=== PATIENT | male | born 1970 | race African-American/Black ===

== ENCOUNTER 2016-02-28 11:37 | Day surgery (SDC) | payer MEDICARE, OTHER ==
--- NOTE | 2016-02-07 16:59 | CONS ---
DATE OF ADMISSION: 12/05/2015 DATE OF CONSULTATION: TYPE OF CONSULTATION: Preoperative Gastroenterology Dear Dr. Clements, I thank you very much for this kind referral. HISTORY OF PRESENT ILLNESS: Mr. Bin Diaz is a 45-year-old male patient who has been referred to me for further evaluation of upper abdominal pain and chronic heartburn not completely responding to therapy with pantoprazole. There is no past history of peptic ulcer disease. He is not taking any nonsteroidal anti-inflammatory agents. His appetite has been good and there is no history of significant weight loss. There is no history of gallstones. He does not have any fever, chills or jaundice. There is no history of liver disease. The patient denies any change in the bowel habit or rectal bleeding. There is no past history of inflammatory bowel disease or colon neoplasm. He is hypertensive. He is not a diabetic. He does not have any heart disease or lung problem. There is no history of kidney disease. The patient has got arthritis with back problem and he is status post back surgery. He has been taking tramadol. SOCIAL HISTORY: He is a smoker. He also smokes marijuana. He denies alcohol abuse. FAMILY HISTORY: Negative for gastrointestinal tract neoplasm. ALLERGIES: THERE IS NO HISTORY OF SIGNIFICANT DRUG ALLERGY. MEDICATIONS: 1. Pantoprazole. 2. Lisinopril. 3. Hydrochlorothiazide. 4. Tramadol. PHYSICAL EXAMINATION: GENERAL: He is 5 feet 7 inches tall and he weighs 315 pounds. HEART: Examination of the heart reveals normal first and second heart sounds. LUNGS: Clear. ABDOMEN: Soft without any distention. Liver and spleen are not palpable. There are no masses. There is no focal tenderness. Normal bowel sounds are heard. CENTRAL NERVOUS SYSTEM: Does not reveal any focal neurological deficit. IMPRESSION: 1. Upper abdominal pain, not responding to therapy. 2. Chronic heartburn, not responding to therapy with pantoprazole. 3. Hypertension. 4. History of arthritis. 5. Status post back surgery. 6. Obesity. 7. The patient is a smoker. 8. The patient also smokes marijuana. PLAN: 1. The patient was strongly advised to stop smoking. 2. The patient was strongly advised to lose weight. 3. Dietary consultation was recommended. 4. Follow up with the primary MD for the management of obesity. 5. Continue pantoprazole. 6. Endoscopic examination for further evaluation. 7. Because of the marked obesity with a short thick neck, he needs monitored anesthesia care for the procedure. The procedure and possible complications are well explained to the patient. He understands and consents to the procedure. I thank you once again. With warmest personal regards, Dictated By: TOD LOPEZ/JASON Conf#: [id number] DID#: [id number] MTDD
[~2016-02-28] VITALS: Ht 170.2 cm; Wt 142.0 kg
[~2016-02-28 11:37] MED LIST: ONDA4TAB14 PO; PANT20TA2 PO
[2016-02-28 12:19] VITALS: Ht 170.2 cm; Wt 142.0 kg
[2016-02-28] MEDS ORDERED: LISI40TA9 PO (12:23)
[2016-02-28] MEDS ORDERED: TRAM100T27 PO (12:24)
[2016-02-28] MEDS ORDERED: HYDR12.58 PO (12:24)
[2016-02-28 12:34] VITALS: BP 148/91; PULSE 75; RESP 24
[2016-02-28] MEDS ORDERED: PROPOFOL 40 ML ONE ×2 (12:59→13:10)
[2016-02-28] MEDS ORDERED: LIDOCAINE 100 MG SYRINGE ONE (13:00)
[2016-02-28] MEDS ORDERED: FENTAnyl 50 MCG/ML VIAL ONE ×2 (13:00→13:11)
[2016-02-28 13:52] VITALS: BP 125/88; PULSE 74; RESP 16
[2016-02-28 13:57] VITALS: BP 133/87; PULSE 65; RESP 17
--- NOTE | 2016-02-28 22:37 | GILP ---
DATE OF PROCEDURE: NAME OF PROCEDURE: Esophagogastroduodenoscopy and biopsy. SURGEON: Tod Figueredo MD PREOPERATIVE DIAGNOSES: 1. Abdominal pain. 2. Chronic heartburn. POSTOPERATIVE DIAGNOSES: 1. Hiatal hernia. 2. Gastroesophageal reflux disease. 3. Gastritis. 4. Gastric mucosal biopsies were taken for Helicobacter pylori test. INDICATION FOR THE PROCEDURE: Mr. Mark Diaz is a 45-year-old male patient who had upper abdomin al pain and chronic heartburn, not responding to therapy. The patient was scheduled for endoscopic examination for further evaluation. The procedure and possible complications are well explained to the patient. He understood and conse nted to the procedure. DESCRIPTION OF PROCEDURE: Under the influence of anesthesia, the gastroscope was carefully introduc ed into the esophagus and, under direct vision, it was advanced to the stomach and through the pylor us into the duodenal bulb and descending duodenum. FINDINGS: ESOPHAGUS: The patient had small hiatal hernia and gastroesophageal reflux disease. STOMACH: He had gastritis. Gastric mucosal biopsies were taken for H. pylori test. DUODENUM: Normal. He tolerated the procedure very well and there was no complication from the procedure. At the end o f the procedure, he was awake with stable vital signs and he was discharged home to the care of his family. IMPRESSION: 1. Small hiatal hernia. 2. Gastroesophageal reflux disease. 3. Gastritis. 4. Gastric mucosal biopsies were taken for Helicobacter pylori test. PLAN: 1. Pantoprazole 40 mg p.o. q.a.m. 2. Zantac 300 mg p.o. at bedtime. 3. Await H. pylori test report. Dictated By: TOD LOPEZ/JASON Conf#: [id number] DID#: [id number] CC: TOD FIGUEREDO MD;*EndCC*
== END 2016-02-28 13:48 | disposition home or self-care (01) ==
LOC: GIL 11:37
PROVIDERS: ATTEND Internal Medicine Gastroenterology
DX: K44.9 Diaphragmatic hernia without obstruction or gangrene (principal); K21.9 Gastro-esophageal reflux disease without esophagitis; K29.70 Gastritis, unspecified, without bleeding; F41.8 Other specified anxiety disorders; I10 Essential (primary) hypertension; E66.01 Morbid (severe) obesity due to excess calories; Z68.42 Body mass index [BMI] 45.0-49.9, adult
CPT/HCPCS: 43239; 87081; J2001; J3010

== ENCOUNTER 2016-03-08 15:23 | Emergency (ER) | payer MEDICARE, OTHER ==
[~2016-03-08] VITALS: Ht 152.4 cm; Wt 140.0 kg
[~2016-03-08 15:23] MED LIST changes: +HYDR12.58 PO; +LISI40TA9 PO; -ONDA4TAB14 PO; +TRAM100T27 PO
[2016-03-08 15:29] VITALS: Ht 152.4 cm; Wt 140.0 kg
[2016-03-08] MEDS ORDERED: ONDANSETRON 4 MG INJ IV STA (15:44)
[2016-03-08] MEDS ORDERED: morphine 4 MG/ML VIAL IV STA (15:44)
[2016-03-08] MEDS ORDERED: SOD CHLORIDE 0.9% 1,000 ML IV STA (15:44)
[2016-03-08 16:12] LABS: BASOPHILS % 0.3 % (0.0-2.0); EOSINOPHILS # 0.1 10^3/ul (0.0-0.5); EOSINOPHILS % 0.6 % (0.0-7.0); HEMOGLOBIN 15.4 g/dl (14.0-18.0); LYMPHOCYTES # 2.5 10^3/ul (0.8-2.9); LYMPHOCYTES % 26.8 % (15.0-51.0); MEAN CORPUSCULAR HEMOGLOBIN 27.4 pg (29.0-33.0); MEAN CORPUSCULAR HGB CONC 34.1 g/dl (32.0-37.0); MEAN CORPUSCULAR VOLUME 80.4 fl (82.0-101.0); MEAN PLATELET VOLUME 8.3 fl (7.4-10.4); MONOCYTE # 0.7 10^3/ul (0.3-0.9); MONOCYTES % 7.8 % (0.0-11.0); NEUTROPHIL # 5.9 10^3/ul (1.6-7.5); NEUTROPHILS % 64.5 % (39.0-77.0); PLATELET COUNT 402 10^3/UL (140-440); RED CELL DISTRIBUTION WIDTH 14.5 % (11.5-14.5); UNCORRECTED WBC 9.2 10^3/ul (4.8-10.8); WHITE BLOOD COUNT 9.2 10^3/ul (4.8-10.8)
[2016-03-08 16:13] LABS: ALBUMIN 4.1 g/dl (3.3-4.9); CONDITION 1; LH ANALYZER COMMENTS 1
[2016-03-08 16:14] LABS: POTASSIUM 4.4 mmol/L (3.5-5.1)
[2016-03-08 16:16] LABS: ALBUMIN/GLOBULIN RATIO 0.89; BILIRUBIN,INDIRECT 0.3 mg/dl (0-1.1); BILIRUBIN,TOTAL 0.3 mg/dl (0.2-1.3); CREATININE 1.3 mg/dl (0.61-1.24); TOTAL PROTEIN 8.7 g/dl (6.1-8.1)
[2016-03-08 16:17] LABS: CALCIUM 9.4 mg/dl (8.4-10.2)
--- NOTE | 2016-03-08 16:30 | RADRPT ---
PROCEDURE: CT Abdomen and Pelvis without contrast. CLINICAL INDICATION: Abdominal pain with nausea and vomiting. TECHNIQUE: CT scan of the abdomen and pelvis without contrast was performed on a multidetector hig h-resolution CT scanner. The patient was scanned without intravenous contrast. Coronal and sagittal reformatted images were obtained from the axial source images. Images were reviewed on a high-resol [employer] PACS workstation. The total exam CTDI equals 23.85 mGy and the total exam DLP equals 1746.67 m Gy-cm. One or more of the following dose reduction techniques were used: Automated exposure control. Adjustment of the mA and/or kV according to patient size. Use of iterative reconstruction technique. COMPARISON: None FINDINGS: CT abdomen: The lung bases are clear. The heart size is normal, without pericardial thickening or effusion. Th e liver is normal in size and density without focal mass or intrahepatic biliary dilatation. The sp clementina is normal in size and homogeneous in density. The stomach is partially collapsed, but is gross ly unremarkable. The pancreas as visualized is normal. The gallbladder and biliary tree are unrema rkable and there is no evidence for biliary dilatation. The adrenal glands are symmetric and normal . The kidneys are symmetrically unremarkable as well. No renal calculus or obstructive uropathy or mass lesion is seen. The aorta is of normal caliber. There is no retroperitoneal lymphadenopathy. The stevo hepatis cely on is clear. The bowel and mesentery, as visualized, are equally unremarkable. CT pelvis: The small bowel loops situated within the pelvis are unremarkable. There is a normal appendix. The pelvic organs are normal. The pelvic sidewalls and inguinal regions are clear. The sigmoid colon a nd rectum are remarkable for mild sigmoid diverticulosis without evidence of acute diverticulitis. No mass, lymphadenopathy, or free fluid is seen. No acute inflammation is seen. No osteolytic or os teoblastic lesion is detected. IMPRESSION: 1. No mass, lymphadenopathy, or focal acute inflammatory process is identified. 2. Mild sigmoid diverticulosis without evidence of acute diverticulitis. 3. Normal appendix. RPTAT: BB .Arnie Guidry MD, Date Time Electronically viewed and signed by .Arnie Guidry MD, on 03/08/2016 16:29 .O/
[2016-03-08] MEDS ORDERED: HYDROmorphONE 1 MG/ML SYG IV STA (16:41)
[2016-03-08] MEDS ORDERED: RANI150T9 PO ×2 (16:47→18:41)
[2016-03-08] MEDS ORDERED: FAMOTIDINE 20 MG INJ IV ONE (17:00)
[2016-03-08] MEDS ORDERED: LIDOCAINE/MYLANTA 40 ML BTL PO ONE (17:00)
[2016-03-08] MEDS ORDERED: METOCLOPRAMIDE 10 MG INJ IV ONE (17:00)
[2016-03-08 18:36] LABS: ADD UMIC YES; URINE BILIRUBIN (Dip) NEGATIVE (NEGATIVE); URINE BLOOD (Dip) 1+ (NEGATIVE); URINE GLUCOSE (Dip) NEGATIVE (NEGATIVE); URINE KETONES (Dip) TRACE (NEGATIVE); URINE LEUKOCYTE ESTERASE (Dip) NEGATIVE (NEGATIVE); URINE NITRITE (Dip) NEGATIVE (NEGATIVE); URINE TOTAL PROTEIN (Dip) TRACE (NEGATIVE); URINE UROBILINOGEN (Dip) 0.2 E.U./dL (0.1-1.0)
--- NOTE | 2016-03-08 18:40 | ERD ---
ER Documentation Chief Complaint Date/Time DATE: 03/08/16 TIME: 18:33 Chief Complaint ABD PAIN SINCE YESTERDAY HPI This 45-year-old male presents to the ER with abdominal pain began yesterday was gotten more severe. He is recently diagnosed with gastritis via EGD on February 27. Findings were hiatal hernia as well as gastritis. Reviewed his EMR density has not had a CAT scan throughout his multiple visits to the hospital for abdominal pain. Pain is severe and encumbered by some nausea. He has no constipation or diarrhea. No fever or chills ROS All systems reviewed and are negative except as per history of present illness. Medications Home Meds Active Scripts Pantoprazole* (Protonix*) 20 Mg Tablet.dr, 20 MG PO DAILY, #14 TAB Prov:BJ FABIAN MD 12/05/15 Reported Medications Ranitidine Hcl* (Zantac*) Unknown Strength Tablet, MG PO HS, #30 TAB 03/08/16 Tramadol Hcl* (Tramadol* ER) 100 Mg Tab.er.24h, 100 MG PO DAILY, #30 TAB 02/28/16 Hydrochlorothiazide* (Hydrochlorothiazide*) 12.5 Mg Tablet, 12.5 MG PO DAILY, # 30 TAB 02/28/16 Lisinopril* (Lisinopril*) 40 Mg Tablet, 40 MG PO DAILY, #30 TAB 02/28/16 Allergies Allergies: Coded Allergies: No Known Allergies (Verified Allergy, Mild, 03/08/16) PMhx/Soc History of Surgery: Yes (BACK SX.) Anesthesia Reaction: No Hx Neurological Disorder: No Hx Respiratory Disorders: No Hx Cardiac Disorders: No Hx Psychiatric Problems: Yes (DEPRESSION, ANXIETY) Hx Miscellaneous Medical Probl: Yes (HTN, OBESITY, GASTRITIS, GERD) Hx Alcohol Use: No Hx Substance Use: Yes (MARIJUANA) Hx Tobacco Use: No Smoking Status: Never smoker Physical Exam Vitals Vital Signs Date Time Temp Pulse Resp B/P Pulse Ox O2 Delivery O2 Flow Rate FiO2 03/08/16 15:29 97.9 89 18 183/103 99 Physical Exam Const: [] Mild distress Head: Atraumatic Eyes: Normal Conjunctiva ENT: Normal External Ears, Nose and Mouth. Neck: Full range of motion..~ No meningismus. Resp: Clear to auscultation bilaterally Cardio: Regular rate and rhythm, no murmurs Abd: Soft, moderate epigastric tenderness no guarding or rebound, non distended. Normal bowel sounds Skin: No petechiae or rashes Back: No midline or flank tenderness Ext: No cyanosis, or edema Neur: Awake and alert and oriented 3, no focal deficits Psych: Normal Mood and Affect Result Diagram: 03/08/16 1550 03/08/16 1550 Results 24 hrs Laboratory Tests Test 03/08/16 15:50 Alanine Aminotransferase (ALT/SGPT) 32IU/L Albumin 4.1g/dl Albumin/Globulin Ratio 0.89 Alkaline Phosphatase 100IU/L Anion Gap 17 Aspartate Amino Transf (AST/SGOT) 31IU/L Basophils # 0.010^3/ul Basophils % 0.3% Blood Morphology Comment Blood Urea Nitrogen 18mg/dl Calcium Level 9.4mg/dl Carbon Dioxide Level 26mmol/L Chloride Level 105mmol/L Creatinine 1.30mg/dl Direct Bilirubin 0.00mg/dl Eosinophils # 0.110^3/ul Eosinophils % 0.6% Globulin 4.60g/dl Glucose Level 114mg/dl Hematocrit 45.0% Hemoglobin 15.4g/dl Indirect Bilirubin 0.3mg/dl Lipase 79U/L Lymphocytes # 2.510^3/ul Lymphocytes % 26.8% Mean Corpuscular Hemoglobin 27.4pg Mean Corpuscular Hemoglobin Concent 34.1g/dl Mean Corpuscular Volume 80.4fl Mean Platelet Volume 8.3fl Monocytes # 0.710^3/ul Monocytes % 7.8% Neutrophils # 5.910^3/ul Neutrophils % 64.5% Nucleated Red Blood Cells # 0.010^3/ul Nucleated Red Blood Cells % 0.0/100WBC Platelet Count 85474^3/UL Potassium Level 4.4mmol/L Red Blood Count 5.6010^6/ul Red Cell Distribution Width 14.5% Sodium Level 144mmol/L Total Bilirubin 0.3mg/dl Total Protein 8.7g/dl White Blood Count 9.210^3/ul Current Medications Medications (Trade) Dose Ordered Sig/Viviane Route PRN Reason Start Time Stop Time Status Last Admin Dose Admin Sodium Chloride (NS) 1,000 ml @ 1,000 mls/hr Q1H STAT IV 03/08/16 15:44 03/08/16 16:43 DC 03/08/16 15:57 Morphine Sulfate (morphine) 4 mg ONCE STAT IV 03/08/16 15:44 03/08/16 15:45 DC 03/08/16 15:56 Ondansetron HCl (Zofran Inj) 4 mg ONCE STAT IV 03/08/16 15:44 03/08/16 15:45 DC 03/08/16 15:56 Miscellaneous Medication (Gi Cocktail (2)) 40 ml ONCE ONCE PO 03/08/16 17:00 03/08/16 17:01 DC 03/08/16 16:34 Hydromorphone HCl (Dilaudid) 1 mg ONCE STAT IV 03/08/16 16:41 03/08/16 16:42 DC 03/08/16 16:48 Famotidine (Pepcid Iv) 20 mg ONCE ONCE IV 03/08/16 17:00 03/08/16 17:01 DC 03/08/16 16:53 Metoclopramide HCl (Reglan) 10 mg ONCE ONCE IV 03/08/16 17:00 03/08/16 17:01 DC 03/08/16 16:53 Procedures/MDM Epigastric pain likely secondary to gastritis after eating concentrated tomato products. Patient had acute abdominal pain that was severe in nature. He was given morphine, GI cocktail and Dilaudid 1 mg as well as Zofran. His pain was decreased substantially. He did vomit while receiving part of the GI cocktail. He was given an additional 10 mg of Reglan. Also given a liter of normal saline. He was then feeling great and laughing and joking around. I also gave him 20 mg of IV Pepcid. CT shows no evidence of any acute surgical pathology or viscus perforation as this was a concern with recent instrumentation and procedure. He is feeling well wants to go home. Laboratory is are significant only for renal insufficiency. He was hydrated with normal saline for this. Discharging with Zantac as well as some [place] for pain is usually takes ibuprofen for his back pain I have instructed him to avoid taking much of any nonsteroidal anti-inflammatory medication while he is healing from his gastritis. Also discharging with sucralfate. Return precautions with any more severe pain to the ER and primary care follow-up in 2-[address] abdomen pelvis interpretation: I see no acute process, no free air, no obstruction, no abnormal fat stranding, no acute fractures. EKG interpretation: Normal sinus rhythm rate of 69, left axis deviation, no ST or T-wave changes concerning for acute ischemia except for slightly increased amplitude of T waves. Departure Diagnosis: Primary Impression: Acute abdominal pain Additional Impressions: Gastritis Renal insufficiency Condition: Stable ZAC MATTHEWS DO Mar 08, 2016 18:40
[2016-03-08] MEDS ORDERED: HYDR-906 PO (18:41)
[2016-03-08] MEDS ORDERED: SUCR1TAB56 PO (18:42)
[2016-03-08 18:51] VITALS: BP 129/84; PULSE 61; RESP 16; TEMP 98.1
[2016-03-08 19:10] LABS: URINE COLOR YELLOW (YELLOW)
[2016-03-08 19:12] LABS: BACTERIA,URINE FEW; MUCUS,URINE MODERATE; TRANSITIONAL EPI CELLS,URINE FEW
== END 2016-03-08 18:51 | disposition home or self-care (01) ==
LOC: E/R 15:23
DX: R10.13 Epigastric pain (principal); K29.00 Acute gastritis without bleeding; N28.9 Disorder of kidney and ureter, unspecified; I10 Essential (primary) hypertension; E66.9 Obesity, unspecified; Z68.44 Body mass index [BMI] 60.0-69.9, adult
CPT/HCPCS: 36415; 74176; 80053; 81001; 83690; 85025; 96374; 96375; 99285; J1170; J2270; J2405; J2765; J7030; 81003; 93005

== ENCOUNTER 2017-01-18 06:24 | Emergency (ER) | payer MEDICARE, OTHER ==
[~2017-01-18] VITALS: Ht 170.2 cm; Wt 142.0 kg
[~2017-01-18 06:24] MED LIST changes: +HYDR-906 PO; +RANI150T9 PO; +SUCR1TAB56 PO
[2017-01-18 06:27] VITALS: Ht 170.2 cm; Wt 142.0 kg
[2017-01-18] MEDS ORDERED: BELLADONNA/PHENOBARBITAL TAB PO STA (07:14)
[2017-01-18] MEDS ORDERED: LIDOCAINE/MYLANTA 40 ML BTL PO STA (07:14)
[2017-01-18] MEDS ORDERED: ACETAMINOPHEN 500 MG TAB PO STA (07:14)
[2017-01-18] MEDS ORDERED: FAMOTIDINE 20 MG TAB PO STA (07:14)
[2017-01-18] MEDS ORDERED: ACET-141 PO (07:29)
[2017-01-18] MEDS ORDERED: FLUT9.9S NASAL (07:29)
--- NOTE | 2017-01-18 11:21 | ERD ---
ER Documentation Chief Complaint Chief Complaint headcahe , abd pain x 2 days HPI This is a 46-year-old male with a history of gastritis who presents with multiple complaints. His complaints include sinus congestion, nasal congestion and a frontal sinus headache that is moderate, gradual onset and 5 out of 10. Additionally describes epigastric burning abdominal discomfort consistent with his gastritis. He states that he has been eating poorly recently. He denies any chest pain, no pleuritic pain, no nausea vomiting or diarrhea. ROS All systems reviewed and are negative except as per history of present illness. Medications Home Meds Active Scripts Acetaminophen* (Acetaminophen*) 500 MG Extra Strength Tablet, 1000 MG PO Q6H Y for PAIN AND OR ELEVATED TEMP, #30 TAB Prov:JS IRENE MD 01/18/17 Fluticasone Propionate (Flonase Allergy Relief) 9.9 Ml [place] [facility].susp, 1 SPRAY NASAL BID for 7 Days, #1 BOTTLE TO EACH NOSTRIL Prov:JS IRENE MD 01/18/17 Sucralfate* (Carafate*) 1 Gm Tab, 1 GM PO QID, #30 TAB Prov:ZAC MATTHEWS DO 03/08/16 Ranitidine Hcl* (Zantac*) 150 Mg Tablet, 150 MG PO BID, #60 TAB Prov:ZAC MATTHEWS DO 03/08/16 Hydrocodone/Acetaminophen (Sebastian 5-325 Tablet) 1 Each Tablet, 1 EACH PO Q6, #18 TAB Prov:ZAC MATTHEWS DO 03/08/16 Pantoprazole* (Protonix*) 20 Mg Tablet.dr, 20 MG PO DAILY, #14 TAB Prov:BJ FABIAN MD 12/05/15 Reported Medications Ranitidine Hcl* (Zantac*) Unknown Strength Tablet, MG PO HS, #30 TAB 03/08/16 Tramadol Hcl* (Tramadol* ER) 100 Mg Tab.er.24h, 100 MG PO DAILY, #30 TAB 02/28/16 Hydrochlorothiazide* (Hydrochlorothiazide*) 12.5 Mg Tablet, 12.5 MG PO DAILY, # 30 TAB 02/28/16 Lisinopril* (Lisinopril*) 40 Mg Tablet, 40 MG PO DAILY, #30 TAB 02/28/16 Allergies Allergies: Coded Allergies: No Known Allergies (Verified Allergy, Mild, 01/18/17) PMhx/Soc History of Surgery: Yes (BACK SX.) Anesthesia Reaction: No Hx Neurological Disorder: No Hx Respiratory Disorders: No Hx Cardiac Disorders: No Hx Psychiatric Problems: Yes (DEPRESSION, ANXIETY) Hx Miscellaneous Medical Probl: Yes (HTN, OBESITY, GASTRITIS, GERD) Hx Alcohol Use: No Hx Substance Use: Yes (MARIJUANA) Hx Tobacco Use: No Smoking Status: Never smoker FmHx Family History: No diabetes Physical Exam Vitals Vital Signs Date Time Temp Pulse Resp B/P Pulse Ox O2 Delivery O2 Flow Rate FiO2 01/18/17 06:27 97.8 71 18 153/88 96 Physical Exam General: Well developed, well nourished, no acute distress Head: Normocephalic, atraumatic. Eyes: Pupils equally reactive, EOM intact ENT: Moist mucous membranes Neck: Supple, no lymphadenopathy Respiratory: Lungs clear bilaterally, no distress Cardiovascular: RRR, no murmurs, rubs, or gallops Abdominal: Soft, non-tender, non-distended, no peritoneal signs, negative Akins sign, no tenderness to McBurney's point : Deferred MSK: No edema, no unilateral swelling, 5/5 strength Neurologic: Alert and oriented, moving all extremities, normal speech, no focal weakness, no cerebellar signs Skin: No rash Psych: Normal mood Results 24 hrs Current Medications Medications (Trade) Dose Ordered Sig/Viviane Route PRN Reason Start Time Stop Time Status Last Admin Dose Admin Famotidine (Pepcid) 20 mg ONCE STAT PO 01/18/17 07:14 01/18/17 07:15 DC 01/18/17 07:50 Miscellaneous Medication (Gi Cocktail (2)) 40 ml ONCE STAT PO 01/18/17 07:14 01/18/17 07:15 DC 01/18/17 07:50 Belladonna/ Phenobarbital () 2 tab ONCE STAT PO 01/18/17 07:14 01/18/17 07:15 DC 01/18/17 07:50 Acetaminophen (Tylenol Tab) 1,000 mg ONCE STAT PO 01/18/17 07:14 01/18/17 07:15 DC 01/18/17 07:50 Procedures/MDM The patient's headache is unlikely related to serious etiology. The patient does not exhibit any clinical signs or symptoms, and has no risk factors to suggest headache etiology such as subarachnoid hemorrhage, acute vertebral or carotid dissection, intracranial mass, epidural, subdural hematoma, dural venous sinus thrombosis, giant cell arteritis, or pseudotumor cerebri. Headache very consistent with sinus congestion and viral process abdominal pain is very consistent with prior history of gastritis and dyspepsia. Benign abdominal exam without signs of acute intra-abdominal process, hepatobiliary obstruction. No signs or symptoms suggestive of cardiac etiology. The patient was given Tylenol, GI cocktail with resolution of symptoms. The patient is safe for discharge. We discussed follow up with the patient's primary care doctor within 24 to 48 hours as needed. We also discussed return to the emergency room for worsening symptoms or worsening condition. Outpatient referral: [None required] Discharge Medications: Tylenol, Flonase Departure Diagnosis: Primary Impression: Nasal congestion Additional Impression: Dyspepsia Condition: Stable Patient Instructions: Sinus Headaches, Gastritis (Adult) Additional Instructions: Call your primary care doctor TOMORROW for an appointment during the next 1 WEEK.Tell the corporate secretary that you were referred from this facility.See the doctor sooner or return here if your condition worsens before your appointment time. JS IRENE MD Jan 18, 2017 11:21
== END 2017-01-18 07:59 | disposition home or self-care (01) ==
LOC: FTE 06:24
DX: R09.81 Nasal congestion (principal); R10.13 Epigastric pain; I10 Essential (primary) hypertension; E66.9 Obesity, unspecified; Z68.42 Body mass index [BMI] 45.0-49.9, adult
CPT/HCPCS: 99283

== ENCOUNTER 2018-09-12 15:20 | Emergency (ER) | payer MEDICARE, OTHER ==
[~2018-09-12] VITALS: Ht 172.7 cm; Wt 147.7 kg
[~2018-09-12 15:20] MED LIST changes: +ACET-141 PO; +ACET325T33 PO; +CYCL10TA7 PO; +FAMO-96 PO; +FLUT9.9S NASAL; +HYDR-4011 PO; -HYDR-906 PO; +LISI40TA3 PO; -LISI40TA9 PO; +MED4DP PO; +METO10TA92 PO; +RANI150T35 PO; -RANI150T9 PO
[2018-09-12 15:27] VITALS: Ht 172.7 cm; Wt 147.7 kg
--- NOTE | 2018-09-12 16:19 | ERD ---
ER Documentation Chief Complaint Chief Complaint abdominal pain & vomitting x3hrs, Hx:gastritis HPI 48-year-old male with history of gastritis/GERD diagnosed by EGD and recurrent abdominal pain presents to the ED complaining of 1 day history of severe, burning, nonradiating epigastric pain with nausea and multiple episodes of non bloody nonbilious emesis similar to his previous exacerbations. Denies hematochezia or melanotic stools. Denies chest pain, palpitations or shortness of breath. No relieving or exacerbating factors. No fevers or chills. ROS All systems reviewed and are negative except as per history of present illness. Medications Home Meds Active Scripts Metoclopramide* (Reglan*) 10 Mg Tablet, 10 MG PO Q6 PRN for NAUSEA AND/OR VOMITING, #12 TAB Prov:CYNDY MUIR MD 09/12/18 Famotidine* (Pepcid*) 20 Mg Tablet, 20 MG PO BID for 10 Days, TAB Prov:CYNDY MUIR MD 09/12/18 Acetaminophen* (Tylenol*) 325 Mg Tablet, 2 TAB PO Q6 PRN for PAIN AND OR ELEVATED TEMP, #30 TAB Prov:ZACHARY CAMARENA PA-C 03/08/18 Cyclobenzaprine Hcl* (Cyclobenzaprine Hcl*) 10 Mg Tablet, 10 MG PO Q8 PRN for MUSCLE SPASMS, #30 TAB Prov:ZACHARY CAMARENAC 03/08/18 Methylprednisolone* (Medrol* DOSE PACK) 4 Mg/Dose-Pack Tab.ds.pk, 4 MG PO . DIRECTED, #1 PACKET Prov:ZACHARY CAMARENA PA-C 03/08/18 Acetaminophen* (Acetaminophen*) 500 MG Extra Strength Tablet, 1000 MG PO Q6H PRN for PAIN AND OR ELEVATED TEMP, #30 TAB Prov:JS IRENE MD 01/18/17 Fluticasone Propionate (Flonase Allergy Relief) 9.9 Ml [place].susp, 1 SPRAY NASAL BID for 7 Days, #1 BOTTLE TO EACH NOSTRIL Prov:JS IRENE MD 01/18/17 Sucralfate* (Carafate*) 1 Gm Tab, 1 GM PO QID, #30 TAB Prov:ZAC MATTHEWS DO 03/08/16 Ranitidine Hcl* (Zantac*) 150 Mg Tablet, 150 MG PO BID, #60 TAB Prov:ZAC MATTHEWS DO 03/08/16 Hydrocodone/Acetaminophen (Lynn 5-325 Tablet) 1 Each Tablet, 1 EACH PO Q6, #18 TAB Prov:ZAC MATTHEWS DO 03/08/16 Pantoprazole* (Protonix*) 20 Mg Tablet.dr, 20 MG PO DAILY, #14 TAB Prov:BJ FABIAN MD 12/05/15 Reported Medications Ranitidine Hcl* (Zantac*) Unknown Strength Tablet, MG PO HS, #30 TAB 03/08/16 Tramadol Hcl* (Tramadol* ER) 100 Mg Tab.er.24h, 100 MG PO DAILY, #30 TAB 02/28/16 Hydrochlorothiazide* (Hydrochlorothiazide*) 12.5 Mg Tablet, 12.5 MG PO DAILY, #30 TAB 02/28/16 Lisinopril* (Lisinopril*) 40 Mg Tablet, 40 MG PO DAILY, #30 TAB 02/28/16 Allergies Allergies: Coded Allergies: No Known Allergies (Verified Allergy, Mild, 01/18/17) PMhx/Soc Reviewed in chart. As per HPI. History of Surgery: Yes (BACK SX.) Anesthesia Reaction: No Hx Neurological Disorder: No Hx Respiratory Disorders: No Hx Cardiac Disorders: No Hx Psychiatric Problems: Yes (DEPRESSION, ANXIETY) Hx Miscellaneous Medical Probl: Yes (HTN, OBESITY, GASTRITIS, GERD) Hx Alcohol Use: No Hx Substance Use: Yes (MARIJUANA) Hx Tobacco Use: No Smoking Status: Never smoker FmHx Daughter has Crohn's disease. No family history of cancer. Physical Exam Vitals Vital Signs Date Temp Pulse Resp B/P (MAP) Pulse Ox O2 O2 Flow FiO2 Time Delivery Rate 09/12/18 78 16 150/72 97 Room Air 17:18 (98) 09/12/18 98.2 66 18 209/121 100 15:27 (150) Physical Exam Const: Alert, severe distress due to pain Head: Atraumatic Eyes: Normal Conjunctiva. Sclera anicteric ENT: Normal External Ears, Nose and Mouth. Neck: Full range of motion. Nontender. Resp: Breath sounds are equal and clear to auscultation bilaterally Cardio: Regular rate and rhythm, no murmurs Abd: Soft, obese, non tender, severe epigastric tenderness. No rebound or guarding. No right upper quadrant, right lower quadrant or left lower quadrant tenderness. No masses or abnormal pulsations. Skin: No petechiae or rashes Back: No midline or flank tenderness Ext: No cyanosis, or edema Neur: Awake and alert. No focal deficit Psych: Anxious but not depressed. Result Diagram: 09/12/18 1634 09/12/18 1634 Results 24 hrs Laboratory Tests Test 09/12/18 16:34 White Blood Count 12.0 10^3/ul Red Blood Count 6.03 10^6/ul Hemoglobin 16.0 g/dl Hematocrit 50.7 % Mean Corpuscular Volume 84.1 fl Mean Corpuscular Hemoglobin 26.5 pg Mean Corpuscular Hemoglobin Concent 31.6 g/dl Red Cell Distribution Width 14.3 % Platelet Count 430 10^3/UL Mean Platelet Volume 9.7 fl Immature Granulocytes % 0.400 % Neutrophils % 83.9 % Lymphocytes % 11.7 % Monocytes % 3.4 % Eosinophils % 0.1 % Basophils % 0.5 % Nucleated Red Blood Cells % 0.0 /100WBC Immature Granulocytes # 0.050 10^3/ul Neutrophils # 10.1 10^3/ul Lymphocytes # 1.4 10^3/ul Monocytes # 0.4 10^3/ul Eosinophils # 0.0 10^3/ul Basophils # 0.1 10^3/ul Nucleated Red Blood Cells # 0.0 10^3/ul Sodium Level 146 mmol/L Potassium Level 4.4 mmol/L Chloride Level 110 mmol/L Carbon Dioxide Level 23 mmol/L Anion Gap 13 Blood Urea Nitrogen 13 mg/dl Creatinine 1.32 mg/dl Est Glomerular Filtrat Rate mL/min > 60 mL/min Glucose Level 124 mg/dl Calcium Level 10.2 mg/dl Total Bilirubin 0.5 mg/dl Direct Bilirubin 0.00 mg/dl Indirect Bilirubin 0.5 mg/dl Aspartate Amino Transf (AST/SGOT) 25 IU/L Alanine Aminotransferase (ALT/SGPT) 22 IU/L Alkaline Phosphatase 125 IU/L Total Protein 9.4 g/dl Albumin 4.6 g/dl Globulin 4.80 g/dl Albumin/Globulin Ratio 0.95 Lipase 61 U/L Current Medications Medications Dose Sig/Viviane Start Time Status Last (Trade) Ordered Route PRN Stop Time Admin Dose Reason Admin Sodium 1,000 ml @ Q1H STAT 09/12/18 DC 09/12/18 Chloride 1,000 mls/hr IV 16:28 09/12/18 16:46 17:27 1 mg ONCE STAT 09/12/18 DC 09/12/18 Hydromorphone IV 16:28 09/12/18 16:45 HCl 16:33 (Dilaudid) 10 mg ONCE STAT 09/12/18 DC 09/12/18 Metoclopramid IV 16:28 09/12/18 16:45 e HCl 16:33 (Reglan) Famotidine 20 mg ONCE STAT 09/12/18 DC 09/12/18 (Pepcid Iv) IV 16:28 09/12/18 16:45 16:33 25 mg ONCE ONCE 09/12/18 DC 09/12/18 Diphenhydrami IV 16:30 09/12/18 16:45 ne HCl 16:33 (Benadryl) 40 ml ONCE ONCE 09/12/18 DC 09/12/18 Miscellaneous PO 17:00 09/12/18 16:45 Medication 17:01 (Gi Cocktail (2)) Procedures/MDM DOCUMENTS REVIEWED: ED nurse, prior ED, prior records including EGD from 2016. REEXAMINATION/REEVALUATION: Time: 17:40. Well. Pain essentially resolved. A bdomen soft nontender. [employer] DECISION MAKIN-year-old male with history of gastritis/GERD d iagnosed by EGD and recurrent abdominal pain presents to the ED complaining of 1 day history of severe, burning, nonradiating epigastric pain with nausea and multiple episodes of nonbloody nonbilious emesis similar to his previous exacerbations. CBC reveals mild leukocytosis without bandemia, anemia. Chemistry significant for elevated creatinine and hyponatremia but no other electrolyte abnormalities or hyperglycemia. Lipase is not elevated or consistent with pancreatitis. Patient presents with exacerbation of previously diagnosed gastritis. Pain resolved with intravenous hydration, analgesics, antiemetics and H2 blockers. No rebound, guarding, signs of appendicitis, diverticulitis, cholecystitis, obstructive uropathy or peritonitis hence CT is deferred. Stable for discharge with precautionary instructions and outpatient follow-up as counseled. Though the patient's latest blood pressure was elevated (>120/80), the patient has a known history of hypertension and urged to pursue adjustment of their medical therapy within a week with their primary care physician. Please refer to the medication reconciliation form for the current list of hypertensive medications. Counseled patient and family regarding diagnostic workup, diagnosis and need for followup. Understands to return to ED if symptoms recur, worsen or any other concerns. Departure Diagnosis: Primary Impression: Abdominal pain, acute, epigastric Additional Impressions: Acute gastritis Gastritis type: unspecified gastritis Gastritis bleeding: without bleeding Qualified Codes: K29.00 - Acute gastritis without bleeding Accelerated hypertension Condition: Stable CYNDY MUIR MD Sep 12, 2018 16:19
[2018-09-12] MEDS ORDERED: HYDROmorphONE 1 MG/ML SYG IV STA (16:28)
[2018-09-12] MEDS ORDERED: FAMOTIDINE 20 MG INJ IV STA (16:28)
[2018-09-12] MEDS ORDERED: SOD CHLORIDE 0.9% 1,000 ML IV STA (16:28)
[2018-09-12] MEDS ORDERED: METOCLOPRAMIDE 10 MG INJ IV STA (16:28)
[2018-09-12] MEDS ORDERED: DIPHENHYDRAMINE 50 MG INJ IV ONE (16:30)
[2018-09-12] MEDS ORDERED: LIDOCAINE/MYLANTA 40 ML BTL PO ONE (17:00)
[2018-09-12] MEDS ORDERED: CAPSAICIN 0.025% 60 GM CR TOP ONE (18:00)
[2018-09-12 18:58] VITALS: BP 145/75; PULSE 82; RESP 16
== END 2018-09-12 18:59 | disposition home or self-care (01) ==
LOC: E/R 15:20
DX: K29.00 Acute gastritis without bleeding (principal); I10 Essential (primary) hypertension; E66.9 Obesity, unspecified; Z68.42 Body mass index [BMI] 45.0-49.9, adult
CPT/HCPCS: 36415; 80053; 83690; 85025; 96374; 96375; 99284; J1170; J1200; J2765; J7030